=== PATIENT | male | born 1940 | race Two or more races ===

== ENCOUNTER 2025-09-12 11:31 | Emergency (ER) | payer OTHER ==
[~2025-09-12] VITALS: Ht 170.2 cm; Wt 68.1 kg
--- NOTE | 2025-09-12 11:37 | ED.PDOC ---
Raz. trauma (HPI) HPI Comments HPI: Initial Vitals BP:166/78 HR:74 RR:20 O2 Sat:100% RA Temp: Past Medical history: Aneurism, HTN Past Surgical history: Denies ANy Medications: Social History: Denies smoking, ETOH, and drug use. Allergies: NKDA HPI: Poor Historian. 85-year-old male brought in by ambulance from home status post mechanical fall from a standing position from a slip and fall while using his walker today. Patient was on his way to go to [facility]. Per family patient has been experiencing some frequent falls lately but did not seek medical attention and also some generalized weakness. They called [facility] were advised him of the patient's having his symptoms to seek medical attention. While they were taking the patient to the [facility] patient was getting ready and slipped and fell landed on his right hip. Denies any head injury today or loss of consciousness or dizziness. Patient was unable to bear weight and stand up again secondary to right hip pain. Patient is not on blood thinners. Patient has decreased range of motion of the right hip secondary to pain. REVIEW OF SYSTEMS: CONSTITUTIONAL: Denies acute: fever, diaphoresis, chills, generalized weakness. HEAD: Denies acute: headache, photophobia Eyes: Denies acute: Double vision, vision loss, eye pain, eye discharge. EARS: Denies acute: tinnitus, hearing loss, ear discharge, ear pain, THROAT: Denies acute: sore throat, swelling, difficulty swallowing , pain with swallow ing, change in voice. NECK: Denies acute: neck pain, neck swelling, stiff neck. HEART: Denies acute : chest pain, palpitations, LUNGS: Denies acute: SOB, wheezing, cough, hemoptysis ABDOMEN: Denies acute: abdominal pain, Nausea, Vomiting, diarrhea, melena , hematemesis, hematochezia SKIN: Denies acute: rash, redness, lesions, itchiness. EXTREMITIES: Denies acute: calf pain, numbness, tingling, weakness, Denies acute: Low back pain. Neuro: Denies acute: focal neurological deficit, motor or sensory focal neurological deficit, tremors, seizure like activity, confusion, dizziness, change in mental status, loss of bowel or bladder function, cauda equina like symptoms. : Denies acute: dysuria, hematuria, flank pain, increase in urinary frequency. PSYCH: Denies acute: hallucination, suicidal ideation, homicidal ideation. PHYSICAL EXAM: General: -----mild---acute distress, awake and alert. Head: normocephalic, atraumatic. Neck: supple, trachea is midline, no swelling. Throat: Normal phonation. Eyes:, no erythema, no purulent discharge, no proptosis, no icterus. Heart: regular rate, regular rhythm, no significant murmur appreciated. Lungs: no apparent respiratory distress, Able to speak in full sentences. No wheezing, no rhonchi, no crackles. No stridors Clear to auscultation bilaterally. Abdomen: non tender to palpation, non distended, soft, no guarding, no rebound, + bowel sounds. Neuro: Awake, Alert, oriented to name, self, situation, follows commands GCS=15. Speech is normal. Skin: no petechia, no purpura, no cyanosis, non-pale, not jaundice. Lower extremities: --no - Pitting edema no deformity, no focal swelling, no calf TTP. Makes eye contact. moves all four extremities. However patient has decreased range of motion of right hip extension. Face: no apparent facial droop. ED COURSE: DISCLAIMER: This medical document was created using an electronic medical record system with voice recognition software and computerized dictation system. Although this document has been carefully reviewed, there might still be some phonetic and typographical errors. Occasional wrong-word or "sound-alike" substitutions may have occurred due to the inherent limitations of voice recognition software. These areas are purely typographical due to imperfections of the software programs and do not reflect any compromise in the patient's medical care. Please read the chart carefully and recognize, using context, where these substitutions have occurred. Time Seen by MD: 11:30 Reviewed notes: Nurses Notes, Medications, Allergies Allergies: Coded Allergies: NO KNOWN ALLERGIES (Unverified , 09/12/25) Information Source: Patient, Emergency Med Personnel Severity: Moderate Timing: Minutes Duration: Since onset, Minutes Prehospital treatment: None Location: (R) Hip Location of laceration: None Mechanism: Fall Associated signs and symtoms: Weakness Past Medical History PAST MEDICAL HISTORY: HTN Past Medical History (Other): anuerism Surgical History: Denies all surgeries Family History Family History: Reviewed,noncontributory to illness, Unknown Social History Smoker: Non-Smoker Alcohol: Denies ETOH Use Drugs: Denies Drug Use Lives In: Home Was a procedure done? Was a procedure done?: No EKG EKG : Pulse Rate (adult): 83 [place]: Normal Cardiac Rhythm: NSR Block: None Hypertrophy: None ST: Normal Differential Diagnosis Multiple Trauma: Closed Head Injury, Cardiac Injury, Fractures, Intraabdominal Injury, Pneumothorax, Cerebral Contusion, Pulmonary Contusion, Spine Injury, Tracheal Injury, Urological Injury, Vascular Injury, Abrasions, Contusion, Foreign Body, Hematoma, Laceration, Encephalopathy Neck Injury: Cervical Muscle Spasm, Cervical Sprain, Cervical Strain, Cervical Fracture, Spinal Cord Injury X-Ray, Labs, Meds, VS Vital Signs Date Time Temp Pulse Resp B/P (MAP) Pulse Ox O2 Delivery O2 Flow Rate FiO2 09/12/25 17:13 97.9 80 18 135/92 (106) 96 97.9 09/12/25 17:11 86 174/81 09/12/25 17:11 80 135/92 09/12/25 16:45 97.8 84 18 174/81 (112) 96 97.8 09/12/25 16:09 82 177/87 09/12/25 16:00 82 20 177/87 (117) 96 09/12/25 15:00 85 18 168/90 (116) 96 09/12/25 14:00 97.7 91 18 165/96 (119) 95 97.7 09/12/25 13:16 81 18 94 Nasal Cannula* 2 28 09/12/25 12:47 97.7 81 20 148/90 (109) 94 97.7 09/12/25 12:45 84 09/12/25 12:32 83 09/12/25 12:29 83 09/12/25 11:37 98.4 74 20 166/78 100 98.4 Lab Test 09/12/25 13:57 09/12/25 11:55 Range/Units Lactic Acid Level 1.8 2.1 *H 0.4-2.0 mmol/L White Blood Count 9.7 4.4-10.8 10^3/uL Red Blood Count 4.02 L 4.5-5.90 10^6/uL Hemoglobin 13.1 L 13.5-17.5 g/dL Hematocrit 39.1 L 41.0-53.0 % Mean Corpuscular Volume 97.3 80.0-100.0 fL Mean Corpuscular Hemoglobin 32.5 H 28.0-32.0 pg Mean Corpuscular Hemoglobin Concent 33.5 32.0-36.0 g/dL Red Cell Distribution Width 13.8 11.8-14.3 % Platelet Count 152 140-450 10^3/uL Mean Platelet Volume 8.5 6.9-10.8 fL Neutrophils (%) (Auto) 79.8 37.0-80.0 % Lymphocytes (%) (Auto) 11.4 10.0-50.0 % Monocytes (%) (Auto) 6.3 0.0-12.0 % Eosinophils (%) (Auto) 2.3 0.0-7.0 % Basophils (%) (Auto) 0.2 0.0-2.0 % Neutrophils # (Auto) 7.7 1.6-8.6 10 ^3/uL Lymphocytes # (Auto) 1.1 0.4-5.4 10 ^3/uL Monocytes # (Auto) 0.6 0-1.3 10 ^3/uL Eosinophils # (Auto) 0.2 0-0.8 10 ^3/uL Basophils # (Auto) 0 0-0.2 10 ^3/uL Nucleated Red Blood Cells 0.0 % Sodium Level 141 136-145 mmol/L Potassium Level 4.4 3.5-5.1 mmol/L Chloride Level 109 H 98-107 mmol/L Carbon Dioxide Level 23 20-31 mmol/L Anion Gap 9 5-15 Blood Urea Nitrogen 24 H 9-23 mg/dL Creatinine 1.65 H 0.700-1.30 mg/dL Glomerular Filtration Rate Calc 40 >90 mL/min BUN/Creatinine Ratio 14.5 10.0-20.0 Serum Glucose 89 74-106 mg/dL Calcium Level 8.9 8.7-10.4 mg/dL Total Bilirubin 0.8 0.2-1.0 mg/dL Aspartate Amino Transferase (AST) 30 13-40 U/L Alanine Aminotransferase (ALT) 19 7-40 U/L Alkaline Phosphatase 67 46-116 U/L Total Protein 6.7 5.7-8.2 g/dL Albumin 3.9 3.2-4.8 g/dL [address] [address] Ph: [phone] DIAGNOSTIC IMAGING Diagnostic Imaging Report : [id number] Signed PATIENT: CLAIRE HAWK ACCT: [id number] UNIT: [id number] : 1940 LOC: ER ROOM / BED: / AGE / SEX: 85 / M ADM STATUS: REG ER SERVICE [id number] ORDERING PHYSICIAN: ROMAN CAMILO DO PROCEDURE(s): HWOCT - HEAD WITHOUT CONTRAST REASON: FALL ORDER NUMBER(s): [id number], ACCESSION NUMBER(s): [id number] CT HEAD WITHOUT CONTRAST Indication: FALL EXAM DATE: 09/12/2025 11:54 AM COMPARISON: None TECHNIQUE: CT of the head without intravenous contrast. RADIATION DOSE: CTDIvol: 61 mGy, DLP: 1069 mGy*cm FINDINGS: There is no intracranial hemorrhage. There is no extra-axial fluid, mass, mass effect or midline shift. The ventricles are midline and normal in size. Basilar cisterns are patent. There are moderate to advanced periventricular and subcortical white matter chronic microvascular ischemic changes. Moderate global cerebral volume loss. Old bilateral basal ganglia lacunar infarcts. The paranasal sinuses and mastoids are well-pneumatized. Imaged portion of the orbits are unremarkable. IMPRESSION: No intracranial hemorrhage or mass effect. Moderate to advanced chronic microvascular ischemic changes. ATED BY: BHAVESH CASTELLON MD DICTATED DATE/TIME: 09/12/25 1233 SIGNED BY: BHAVESH CASTELLON MD SIGNED DATE/TIME: 09/12/25 1233 CC: [address] [address] Ph: [phone] DIAGNOSTIC IMAGING Diagnostic Imaging Report : [id number] Signed PATIENT: CLAIRE HAWK ACCT: [id number] UNIT: [id number] : 1940 LOC: ER ROOM / BED: / AGE / SEX: 85 / M ADM STATUS: REG ER SERVICE 1134 ORDERING PHYSICIAN: ROMAN CAMILO DO PROCEDURE(s): ABPL - CT AB PEL WO CON-NO ORAL OR IV REASON: fall, R HIP PAIN/INJURY ORDER NUMBER(s): [id number], ACCESSION NUMBER(s): [id number] Indication: fall, R HIP PAIN/INJURY Technique: CT axial images of the abdomen and pelvis are obtained without contrast. Coronal and sagittal reformats were obtained. Radiation Dose Information: CTDI volume is 11.21 mGy. Dose-length product is 639 mGy*cm Comparison: None FINDINGS: There is limited interpretation of the abdomen and pelvis without administration of intravenous contrast. Lung bases demonstrate no pleural effusion. Cardiomegaly. Coronary artery calcification disease. Ascending aorta measures 3.9 cm. Glands, spleen, pancreas unremarkable in shape. Cirrhotic morphology liver. Cholelithiasis. The kidneys demonstrate no hydronephrosis / nephrolithiasis. Small hiatal hernia. Stomach partially distended. Small bowel loops are normal in caliber. Moderate to large volume stool throughout the colon. Normal appendix. Aneurysmal dilatation of the infrarenal abdominal aorta up to 6.3 by 6.2 cm. Bladder partially distended. No free pelvic fluid. No inguinal lymphadenopathy. Euxa-xx-[id number] bilateral sacroiliac degenerative joint disease. Moderate thoracolumbar degenerative disc disease. Old L2 compression deformity with 40% loss height. Old T12 compression deformity with 20% loss height. Acute fracture of the subcapital right femoral neck that is displaced with 2.2 cm offset. Ckda-kw-vachkbls bilateral sacroiliac degenerative joint disease. IMPRESSION: Limited evaluation without contrast. Acute fracture subcapital right femoral neck. With displacement. Cirrhotic morphology liver. Cholelithiasis. Aneurysmal dilatation of the infrarenal abdominal aorta up to 6.3 cm. Recommend vascular surgery consultation. Other findings as described. ATED BY: BHAVESH CASTELLON MD DICTATED DATE/TIME: 09/12/251249 SIGNED BY: BHAVESH CASTELLON MD SIGNED DATE/TIME: 09/12/251249 CC: Time of 1ST Reevaluation: 12:00 Reevaluation 1ST: Unchanged Time of 2ND Reevaluation: 12:46 (The case was discussed with the [facility] admitting team (HPI, physical exam, labs and diagnostic tests that were available at the time of disposition, ED course, treatment plan) on the phone. They agreed to transfer the patient to their service by ALS for further evaluation and treatment. --JAMES-. Authorization number is--[id number]. [facility] PHYSICIAN STATED THAT THE PATIENT HAD A CT SCAN OF THE ABDOMEN AND PELVIS IN NOVEMBER OF THIS YEAR AND THE ANEURYSM SIZE WAS 5.5 X 5.9 CM. ) Patient Education/Counseling: Diagnosis, Treatment, Prognosis Family Education/Counseling: No Family Present Comments MDM: patient presented with the above HPI.--fall/hip pain/generalized w eakness----workup was initiated. patient was found with the above mentioned diagnosis. the following medications were ordered: please refer to order lists of meds and tests obtained by myself Dr. Camilo. Patient ED course and VS have been stabilized. Patient has been reassessed in the ED and remained in a stable condition. Pertinent incidental findings were discussed with the patient and/or family. Patient/family voices understanding and is agreeable with plan. Patient has been observed in the ED adequate length of time to insure improvement/stability. Escalation of care considered: Consideration of escalation to observation or admission Patient was transferred to [facility] per insurance requirement for further evaluation and treatment of their presentation. All the reports of any imaging studies that were ordered by myself were reviewed by myself. Departure 1 Departure Time of Disposition: 12:47 Impression: Primary Impression: Closed right hip fracture Additional Impressions: Multiple falls Generalized weakness Infrarenal abdominal aortic aneurysm (AAA) without rupture Disposition: 02 SHORT TERM HOSPITAL Admit to: Tele Condition: Guarded Discharged With: Self Critical Care Note Critical Care Time?: Yes (35 min-critical care time only) Heart Score Heart Score: Heart Score Response (Comments) Value History N/A 0 EKG N/A 0 Age N/A 0 Risk Factors N/A 0 Troponin N/A 0 Total 0 I personally scribed for ROMAN CAMILO DO ([email or web address]) on 09/12/25 at 11:37. Electronically submitted by Damian Musa ([email or web address]). I personally scribed for ROMAN CAMILO DO ([email or web address]) on 09/12/25 at 12:32. Electronically submitted by Damian Musa ([email or web address]). I personally scribed for ROMAN CAMILO DO ([email or web address]) on 09/12/25 at 14:22. Electronically submitted by Damian Musa ([email or web address]). ROMAN CAMILO DO Sep 12, 2025 11:37
[2025-09-12 12:12] LABS: Hematocrit 39.1 % (41.0-53.0); Hemoglobin 13.1 g/dL (13.5-17.5); Mean Corpuscular Hemoglobin 32.5 pg (28.0-32.0); Mean Corpuscular Volume 97.3 fL (80.0-100.0); Nucleated Red Blood Cells % 0.0 %
[2025-09-12 12:29] LABS: Alanine Aminotransferase 19 U/L (7-40); Alkaline Phosphatase 67 U/L (46-116); Anion Gap 9 (5-15); BUN/Creatinine Ratio 14.5 (10.0-20.0); Calcium 8.9 mg/dL (8.7-10.4); Carbon Dioxide 23 mmol/L (20-31); Glucose 89 mg/dL (74-106); Potassium 4.4 mmol/L (3.5-5.1); Sodium 141 mmol/L (136-145); Total Protein 6.7 g/dL (5.7-8.2)
[2025-09-12 12:30] LABS: Albumin 3.9 g/dL (3.2-4.8); Bilirubin, Total 0.8 mg/dL (0.2-1.0)
[2025-09-12 12:31] LABS: Blood Urea Nitrogen 24 mg/dL (9-23); Chloride 109 mmol/L (98-107)
--- NOTE | 2025-09-12 12:32 | DVH ---
CT HEAD WITHOUT CONTRAST Indication: FALL EXAM DATE: 09/12/2025 11:54 AM COMPARISON: None TECHNIQUE: CT of the head without intravenous contrast. RADIATION DOSE: CTDIvol: 61 mGy, DLP: 1069 mGy*cm FINDINGS: There is no intracranial hemorrhage. There is no extra-axial fluid, mass, mass effect or midline shif t. The ventricles are midline and normal in size. Basilar cisterns are patent. There are moderate to advanced periventricular and subcortical white matter chronic microvascular ischemic changes. Moderat e global cerebral volume loss. Old bilateral basal ganglia lacunar infarcts. The paranasal sinuses and mastoids are well-pneumatized. Imaged portion of the orbits are unremarkabl e. IMPRESSION: No intracranial hemorrhage or mass effect. Moderate to advanced chronic microvascular ischemic changes.
[2025-09-12 12:39] LABS: Lactic Acid w/Reflex 2.1 mmol/L (0.4-2.0)
--- NOTE | 2025-09-12 12:48 | DVH ---
Indication: fall, R HIP PAIN/INJURY Technique: CT axial images of the abdomen and pelvis are obtained without contrast. Coronal and sagit michi reformats were obtained. Radiation Dose Information: CTDI volume is 11.21 mGy. Dose-length product is 639 mGy*cm Comparison: None FINDINGS: There is limited interpretation of the abdomen and pelvis without administration of intravenous contr ast. Lung bases demonstrate no pleural effusion. Cardiomegaly. Coronary artery calcification disease. Ascending aorta measures 3.9 cm. Glands, spleen, pancreas unremarkable in shape. Cirrhotic morphology liver. Cholelithiasis. The kidneys demonstrate no hydronephrosis / nephrolithiasis. Small hiatal hernia. Stomach partially distended. Small bowel loops are normal in caliber. Moderate to large volume stool throughout the colon. Normal appendix. Aneurysmal dilatation of the infrarenal abdominal aorta up to 6.3 by 6.2 cm. Bladder partially disten ded. No free pelvic fluid. No inguinal lymphadenopathy. Pgyt-nt-ymldmjmy bilateral sacroiliac degenerative joint disease. Moderate thoracolumbar degenerative disc disease. Old L2 compression deformity with 40% loss height. Old T12 compression deformity wit h 20% loss height. Acute fracture of the subcapital right femoral neck that is displaced with 2.2 cm offset. Mild-to-mod erate bilateral sacroiliac degenerative joint disease. IMPRESSION: Limited evaluation without contrast. Acute fracture subcapital right femoral neck. With displacement. Cirrhotic morphology liver. Cholelithiasis. Aneurysmal dilatation of the infrarenal abdominal aorta up to 6.3 cm. Recommend vascular surgery con sultation. Other findings as described.
[2025-09-12 13:16] VITALS: PULSE 81; RESP 18; O2SAT 94
--- NOTE | 2025-09-12 15:40 | ECG ---
[facility] Test Date: 2025-09-12 Test Time: 12:27:57 Pat Name: CLAIRE HAWK Department: [facility] ED Patient ID: [facility]-[id number] Room: Gender: M Bi Report Developer: CRISS : 1940 Requested By: ROMAN CAMILO Order Number: [id number] Reading MD: Ramón Marques Measurements Intervals [place] Rate: 83 P: -11 GA: 257 QRS: -50 QRSD: 93 T: 85 QT: 392 QTc: 461 Interpretive Statements Sinus rhythm Prolonged GA interval Left anterior fascicular block Abnormal R-wave progression, early transition Left ventricular hypertrophy Electronically Signed On 09-16-2025 14:50:50 PDT by Ramón Marques Please click the below link to view image of tracing.
[2025-09-12] MEDS: LABETALOL HCL 20 MG/4 ML VL IV ONE ×2 (16:09→17:11)
[2025-09-12 17:13] VITALS: BP 135/92; PULSE 80; RESP 18; TEMP 97.9; O2SAT 96
== END 2025-09-12 12:15 | disposition short-term general hospital (02) ==
LOC: EDBD 11:31 → ER 11:31
DX: S72.001A Fracture of unspecified part of neck of right femur, initial encounter for closed fracture (principal); I71.43 Infrarenal abdominal aortic aneurysm, without rupture; R29.6 Repeated falls; I10 Essential (primary) hypertension; S39.91XA Unspecified injury of abdomen, initial encounter; W01.0XXA Fall on same level from slipping, tripping and stumbling without subsequent striking against object, initial encounter; Y93.89 Activity, other specified; Y92.89 Other specified places as the place of occurrence of the external cause; Y99.8 Other external cause status
CPT/HCPCS: 36415; 70450; 74176; 80053; 83605; 85025; 93005; 96374; 96376; 99291